=== PATIENT | female | born 1970 | race Caucasian/White ===

== ENCOUNTER 2020-08-22 17:22 | Emergency (ER) | payer SELFPAY ==
[~2020-08-22] VITALS: Ht 165.1 cm; Wt 60.0 kg
[2020-08-22] MEDS ORDERED: ONDANSETRON HCL 4MG/2ML INJ IV STA (17:58)
[2020-08-22] MEDS ORDERED: SODIUM CHLORIDE 0.9% 1000ML BAG (SEPSIS BOLUS) IV ONE (18:00)
[2020-08-22 18:43] LABS: BASOPHILS % 0.5 % (0.0-2.0); EOSINOPHILS % 2.4 % (0.0-5.0); HEMATOCRIT. 38.4 % (36.0-48.0); HEMOGLOBIN. 12.7 g/dL (12.0-16.0); LYMPHOCYTES % 38.2 % (20.0-50.0); MEAN CORPUSCULAR VOLUME 78.4 fL (81.0-99.0); MEAN PLATELET VOLUME 8.8 fl (7.4-10.4); MONOCYTES % 10.7 % (2.0-8.0); NEUTROPHILS % 48.2 % (40.0-76.0); PLATELET 323 x1000/uL (130-400); RED BLOOD CELL COUNT 4.89 mill/uL (4.2-5.4); RED CELL DISTRIBUTION WIDTH 13.6 % (11.6-14.6)
[2020-08-22 18:54] LABS: CHLORIDE 108 mEq/L (98-107)
[2020-08-22 19:02] LABS: CREATINE KINASE 22 IU/L (26-192)
[2020-08-22] MEDS ORDERED: KETOROLAC 15MG/ML VIAL IV ONE (19:15)
[2020-08-22 19:39] LABS: D-DIMER 0.51 mg/L FEU (<0.50); PROTHROMBIN TIME 10.9 sec (9.6-11.0)
[2020-08-23] MEDS ORDERED: ONDANSETRON HCL 4MG/2ML INJ IV PRN (06:30)
[2020-08-23] MEDS ORDERED: HYDROMORPHONE HCL/PF 2MG/ML CPJ IV PRN (06:30)
[2020-08-23] MEDS ORDERED: ACETAMINOPHEN 325MG TABLET PO PRN (06:30)
[2020-08-23] MEDS ORDERED: CLONIDINE 0.1MG TABLET PO PRN (06:30)
[2020-08-23] MEDS: DEXT 5%/0.45% NACL KCL 10MEQ/L 1,000 ML IV SCH ×2 (07:00→11:12)
[2020-08-23] MEDS ORDERED: ENOXAPARIN 40MG/0.4ML SYR SUBCUT SCH (09:00)
[2020-08-23 11:30] VITALS: BP 111/68
== END 2020-08-23 11:30 | disposition home or self-care (01) ==
LOC: ER 17:22 → CANRESERV 08-23 07:29 → ENRESERV 08-23 07:29 → EDBEDREQSVC 08-23 07:52 → CANRESERV 08-23 10:36 → ENRESERV 08-23 10:36 → CANBEDREQ 08-23 11:19 → ER 08-23 11:30
DX: K85.90 Acute pancreatitis without necrosis or infection, unspecified (principal); R11.0 Nausea; D64.9 Anemia, unspecified
CPT/HCPCS: 36415; 71045; 80053; 82550; 82728; 83605; 83615; 83690; 83880; 84145; 84484; 85025; 85379; 85384; 85610; 86140; 87040; 87804; 93005; 96361; 96372; 96374; 99285; C9803; J1650; J1885; J2405; J7030; U0003